=== PATIENT | female | born 1980 | race African-American/Black ===

== ENCOUNTER 2017-11-21 17:46 | Emergency (ER) | payer OTHER ==
[~2017-11-21] VITALS: Ht 162.6 cm; Wt 54.4 kg
[~2017-11-21 17:46] MED LIST: AMBIEN 5 MG TABL5 M1 PO; AMOXICILLIN 50500 M1 PO; AMOXICILLIN 50500 MG PO; BENADRYL ITCH28.3 G1 TOP; BENADRYL25 MG PO; DEPAKOTE ER500 MG PO; DEPO-PROVE150 MG/1 M IM; MOBIC7.5 MG PO; NORCO 5-325 TA1 EACH PO
[2017-11-21] MEDS ORDERED: AMBIEN 5 MG TABL5 M1 PO (17:50)
[2017-11-21] MEDS ORDERED: CLEOCIN HCL150 MG PO (18:30)
[2017-11-21] MEDS ORDERED: MOBIC15 MG PO (18:30)
[2018-05-25] MEDS ORDERED: AMOXICILLIN 50500 MG PO (10:21)
[2018-05-25] MEDS ORDERED: MOBIC15 MG PO (10:21)
[2018-05-25] MEDS ORDERED: CLEOCIN HCL150 MG PO (10:33)
== END 2017-11-21 18:55 | disposition home or self-care (01) ==
LOC: ER 17:46
DX: K02.9 Dental caries, unspecified (principal); F17.210 Nicotine dependence, cigarettes, uncomplicated; Z88.0 Allergy status to penicillin

== ENCOUNTER 2018-09-08 00:24 | Emergency (ER) | payer OTHER ==
[~2018-09-08] VITALS: Ht 162.6 cm; Wt 59.0 kg
[~2018-09-08 00:24] MED LIST changes: +CLEOCIN HCL150 MG PO; +MOBIC15 MG PO
[2018-09-08] MEDS ORDERED: PENICILLIN V P500 MG PO (01:02)
[2018-09-08 01:07] VITALS: BP 135/75
== END 2018-09-08 01:07 | disposition home or self-care (01) ==
LOC: ER 00:24
DX: K08.89 Other specified disorders of teeth and supporting structures (principal); F17.210 Nicotine dependence, cigarettes, uncomplicated; Z88.0 Allergy status to penicillin